=== PATIENT | male | born 2005 | race Caucasian/White ===

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

== ENCOUNTER 2023-03-22 17:36 | Emergency (ER) | payer OTHER, SELFPAY ==
[2023-03-22 17:43] VITALS: BP 142/65; PULSE 120; RESP 14; TEMP 36.7; O2SAT 98
[2023-03-22 18:06] VITALS: BP 142/65; PULSE 120; RESP 14; TEMP 36.7; O2SAT 98
--- NOTE | 2023-03-22 18:07 | ED.GENADULT ---
HPI - General Adult General Chief complaint: Upper Respiratory Infection Stated complaint: Fever, Feeling Ill Source: patient and RN notes reviewed History of Present Illness HPI narrative: 18-year-old male presents to urgent care with complaints of a sore throat, fevers, and body aches. Patient reports a slight headache and slight shortness of breath. Patient states this all started yesterday but this morning is when it got worse. Denies any vomiting, diarrhea abdominal pain chest pain or ear pain. Patient has been taking Tylenol at. Related Data Home Medications Medication Instructions Recorded Confirmed bupropion HCl 150 mg 24 hr tablet, 150 mg PO QAM 03/22/23 03/22/23 extended release dextroamphetamine-amphetamine 15 15 mg PO DAILY 03/22/23 03/22/23 mg tablet (Adderall) paroxetine HCl 20 mg tablet (Paxil) 20 mg PO QAM 03/22/23 03/22/23 Allergies Allergy/AdvReac Type Severity Reaction Status Date / Time No Known Allergies Allergy Verified 03/22/23 18:05 Review of Systems Review of Systems: Pertinent positives and pertinent negatives per HPI. PMFSH Comments At the time of my signature, I reviewed and agree with the nursing past medical, surgical, social, and family history. There is no relevant family history pertinent to the patient complaint. Exam Narrative: GENERAL: This is a well-nourished, well-developed patient, in no apparent distress. HEAD: normocephalic, atraumatic. EYES: Sclera clear/white. Vision is grossly intact. EARS: External ears normal, auditory canals clear and without drainage, TMs normal without perforation. Hearing grossly intact. NOSE: External nose normal with no obvious nasal discharge, nares without redness, no rhinorrhea. THROAT: Mucous membranes moist, posterior pharynx clear. NECK: Neck supple, non-tender without lymphadenopathy, masses or thyromegaly. CARDIOVASCULAR: Tachycardic rate and rhythm without murmurs, gallops, or rubs. RESPIRATORY: Clear to auscultation. Breath sounds equal bilaterally. No wheezes, rales, or rhonchi. SKIN: warm, intact with no suspicious lesions or rash, good texture and turgor. NEURO: awake, alert, and oriented to person, place and time. There were no obvious focal neurologic abnormalities. Course Course Level of Care: Express Care Visit Vital Signs Vital signs: Vital Signs Temperature 98.1 F 03/22/23 17:43 Pulse Rate 120 H 03/22/23 17:43 Respiratory Rate 14 03/22/23 17:43 Blood Pressure 142/65 H 03/22/23 17:43 Pulse Oximetry 98 03/22/23 17:43 Oxygen Delivery Room Air 03/22/23 17:43 Temperature 98.1 F 03/22/23 18:06 Pulse Rate 120 H 03/22/23 18:06 Respiratory Rate 14 03/22/23 18:06 Blood Pressure 142/65 H 03/22/23 18:06 Pulse Oximetry 98 03/22/23 18:06 Oxygen Delivery Room Air 03/22/23 18:06 Reviewed Medical Decision Making MDM Narrative Medical decision making narrative: Viral illness may last between 7-21 days; antibiotics do not cure viral illness and are NOT recommended at this time. Also, recommend symptomatic treatment includes: rest, fluids, and increase humidity of the air at home. Recommend Acetaminophen as directed on the bottle to reduce fever, pain, headache. Please schedule a follow-up visit with your personal physician for further evaluation and treatment within 3-5days. If your symptoms persist, change or worsen significantly before you can contact your personal physician then please, without delay, go to the emergency department for further evaluation. Differential Diagnosis Differential Diagnosis: Strep throat, URI, viral illness Vital Signs Vital Signs: Vital Signs Temperature 98.1 F 03/22/23 17:43 Pulse Rate 120 H 03/22/23 17:43 Respiratory Rate 14 03/22/23 17:43 Blood Pressure 142/65 H 03/22/23 17:43 Pulse Oximetry 98 03/22/23 17:43 Oxygen Delivery Room Air 03/22/23 17:43 Temperature 98.1 F 03/22/23 18:06 Pulse Rate 120 H 03/22/23
== END 2023-03-22 18:13 | disposition home or self-care (01) ==
PROVIDERS: Emergency Provider Nurse Practitioner Family
DX: B34.9 Viral infection, unspecified (principal); J45.909 Unspecified asthma, uncomplicated; F90.9 Attention-deficit hyperactivity disorder, unspecified type; F41.9 Anxiety disorder, unspecified; F32.A Depression, unspecified
CPT/HCPCS: 87081; 87880; 99213; G0463